=== PATIENT | female | born 1960 | race Caucasian/White ===

== ENCOUNTER 2020-04-15 21:51 | Inpatient (IN) | payer BC ==
[2020-04-15] MEDS ORDERED: Acetaminophen 650 MG Suppository PR PRN (23:09)
[2020-04-15] MEDS ORDERED: Ondansetron PF 4 MG/2 ML Vial IVP PRN (23:09)
[2020-04-15] MEDS ORDERED: Ondansetron ODT 4 MG TAB PO PRN (23:09)
--- NOTE | 2020-04-15 23:22 | PDOC.HHP ---
Hospitalist HPI - History of Present Illness Chills and abdominal cramping History of Present Illness: Patient states she has been feeling unwell for the last 5-6 days with generalized body aches. Two days ago she began to experience lower abdominal cramping. Today she developed "uncontrollable chills" and this prompted her to seek medical attention. She felt it was likely associated with recurrent diverticulitis. She had her first episode in November 2018 and quickly recovered with antibiotics. Has had 3-4 recurring episodes since then. States she has not required treatment and that it quickly resolved on its own. Has not had a formal diagnosis. She states her appetite has been low that last 3 days and therefore her bowel movements have slowed down as well as her urinary output. Normally she has several loose stool s a day. Denies any blood per rectum. Had a small bowel movement this morning. Has vomiting a couple of times but no further vomiting since yesterday. ED Course: Apparently was prescribed Augmentin, however her symptoms worsened. She was seen at [facility] where she had CT imaging of the pelvis demonstrating a pelvic abscess(11.8x5.9x4.9 cm large encapsulated fluid collection surrounding the uterus and sigmoid colon). Started on IV antibiotics with Vanc/Zosyn. Deemed to need surgical evaluation and therefore transferred. Per ED notes, she had labs done showing a lactic acid of 3.4. She received 3 L of NS and lactic acid improved to 2.0. For pain she received morphine. For nausea she received Zofran. EKG NSR HR 86. No ST changes or T wave abnormalities. Hospitalist ROS - Medication Medications: ALLERGIES: No known drug allergies. CURRENT MEDICATIONS: None. 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 Gastrointestinal: reports: Other (Treated for diverticulitis by PCP.) - Past Surgical History Past Surgical History: reports: no pertinent history - Family History Family History: reports: no pertinent history - Social History Smoking Status: Never smoker Alcohol: reports: Heavy Activity level: independent ambulation - Exam General Appearance: NAD, awake alert General - other findings: Appears uncomfortable when she moves but in no acute distress Eye: PERRL, anicteric sclera ENT: normocephalic atraumatic, no oropharyngeal lesions, dry oral mucosa Neck: supple, no lymphadenopathy Heart: RRR, no murmur, no gallops, no rubs, normal peripheral pulses Respiratory: CTAB, no wheezes, no rales, no ronchi, normal chest expansion Gastrointestinal: normal bowel sounds Gastrointestinal - other findings: semi-firm, diffuse discomfort with palpation Extremities: no cyanosis, no clubbing, no edema Skin: normal turgor, no lesions, no rashes Neurological: cranial nerve grossly intact, normal sensation to touch Musculoskeletal: normal tone, normal strength, no muscle wasting Psychiatric: normal affect, normal behavior, A&O x 3 Hospitalist Results - Labs Result Diagrams: 04/16/20 00:00 04/16/20 00:00 Hospitalist H&P A/P - Problem (1) Abdominal pain Code(s): R10.9 - UNSPECIFIED ABDOMINAL PAIN Status: Acute (2) Hypotension Status: Acute (3) Pelvic abscess in female Code(s): N73.9 - FEMALE PELVIC INFLAMMATORY DISEASE, UNSPECIFIED Status: Acute (4) Rigors Code(s): R68.89 - OTHER GENERAL SYMPTOMS AND SIGNS Status: Acute (5) History of diverticulitis Code(s): Z87.19 - PERSONAL HISTORY OF OTHER DISEASES OF THE DIGESTIVE SYSTEM Status: Chronic (6) Heavy alcohol consumption Code(s): Z78.9 - OTHER SPECIFIED HEALTH STATUS Status: Chronic - Plan Plan: General surgery was consulted by ED physician. NPO until surgical review. Obtain baseline labs here. IV fluids. Monitor BP. ASE protocol. UA/UCx, UDS. Bladder scan to ensure no retention (given complaints of decreased urine output) . GI prophylaxis with Famotidine. DVT Prophylaxis with mechanical SCDS. CODE STATUS FULL Surrogate decision maker: Denys Rodríguez, her . Discussed with Dr. Waggoner who agrees with plan as above.
[2020-04-16 00:20] VITALS: BMI 20.7
[2020-04-16 00:25] LABS: Glucose 113 mg/dL (70-105); Lactic Acid 1.4 mmol/L (0.5-2.2)
[2020-04-16 00:29] LABS: ALT (SGPT) 31 U/L (8-55); AST (SGOT) 30 U/L (5-34); Albumin 3.4 g/dL (3.5-5.0); Alkaline Phosphatase 93 U/L (40-110); Anion Gap 13 mmol/L (10-20); BUN (Urea Nitrogen) 9 mg/dL (9.8-20.1); Bilirubin, Total 1.8 mg/dL (0.2-1.2); Calc. Creatinine Clearance 87 mL/min (70-130); Calcium 9.1 mg/dL (7.8-10.44); Carbon Dioxide 26 mmol/L (22-29); Chloride 101 mmol/L (98-107); Estimated GFR-MDRD 85; Globulin 2.9 g/dL (2.4-3.5); Potassium 3.4 mmol/L (3.5-5.1); Protein, Total 6.3 g/dL (6.0-8.3); Sodium 137 mmol/L (136-145)
[2020-04-16] MEDS: Sodium Chloride 0.9% 1,000 ML IV SCH ×4 (00:31→20:24)
[2020-04-16] MEDS: Cefepime 2 GM in Sodium Chloride 0.9% 100 ML IVPB SCH ×3 (00:32→23:20)
[2020-04-16 00:36] LABS: Band 29 % (5-11); Hemoglobin 12.5 g/dL (12.0-16.0); Lymphocytes 10 % (21-51); MDiff Complete? YES; Mean Corpuscular HGB CONC 33.9 g/dL (32.0-36.0); Mean Corpuscular Volume 91.5 fL (78.0-98.0); Mean Platelet Volume 7.5 fL (7.4-10.4); Metamyelocyte 1 % (0-0); Monocytes 8 % (0-10); Myelocyte 2 % (0-0); Neutrophil 50 % (42-75); Platelet Count 173 thou/uL (130-400); RBC Distribution Width 11.9 % (11.5-14.5); Red Blood Cell (RBC) Count 4.03 mill/uL (4.20-5.40); White Blood Cell (WBC) Count 11.2 thou/uL (4.8-10.8)
[2020-04-16] MEDS: metroNIDAZOLE 500 MG in Premix Bag 1 BAG IVPB SCH ×3 (01:04→17:10)
[2020-04-16 01:14] LABS: Bacteria/HPF None Seen HPF (None Seen); Bilirubin Negative (Negative); Blood, Urine Trace (Negative); Clarity Clear (Clear); Glucose, Urine (Dipstick) Normal (Negative); Leukocyte Negative Leu/uL (Negative); Nitrite Negative (Negative); Protein, Urine (Dipstick) 20 mg/dL (Neg-Trace); RBC/HPF 0-3 HPF (0-3); Squamous Epithelial None Seen HPF (0-3); Urobilinogen Normal mg/dL (Less than 2); WBC/HPF 0-3 HPF (0-3)
[2020-04-16 01:18] LABS: Urine Culture Reflex No No
[2020-04-16 01:35] LABS: Cocaine Metabolite Screen Not Detected (NotDetected); Medtox Reader # READER 4; Methamphetamine Not Detected (NotDetected); Phencyclidine (PCP) Not Detected (NotDetected); THC/Cannabinoid Screen Not Detected (NotDetected)
[2020-04-16 01:36] LABS: Amphetamine Not Detected (NotDetected); Barbiturates Screen Not Detected (NotDetected); Benzodiazepine Screen Not Detected (NotDetected); Medtox Control Line Valid? VALID (VALID); Methadone Not Detected (NotDetected); Opiate Screen Detected (NotDetected); Oxycodone Screen Not Detected (NotDetected); Tricyclic Screen Not Detected (NotDetected)
[2020-04-16] MEDS ORDERED: Potassium Chloride 20 MEQ TAB PO SCH (02:15)
[2020-04-16] MEDS ORDERED: Potassium Chloride 20 MEQ in Premix Bag 1 BAG IVPB SCH (03:00)
[2020-04-16] MEDS: Morphine 2 MG/ML SYRINGE SLOW IVP PRN ×2 (03:10→08:32)
[2020-04-16 06:42] LABS: Band 45 % (5-11); Hemoglobin 12.5 g/dL (12.0-16.0); Lymphocytes 9 % (21-51); MDiff Complete? YES; Mean Corpuscular Volume 91.3 fL (78.0-98.0); Mean Platelet Volume 7.7 fL (7.4-10.4); Metamyelocyte 2 % (0-0); Monocytes 6 % (0-10); Neutrophil 37 % (42-75); Platelet Count 174 thou/uL (130-400); RBC Distribution Width 11.9 % (11.5-14.5); Red Blood Cell (RBC) Count 4.02 mill/uL (4.20-5.40); White Blood Cell (WBC) Count 13.1 thou/uL (4.8-10.8)
[2020-04-16 06:44] LABS: Anion Gap 13 mmol/L (10-20); BUN (Urea Nitrogen) 9 mg/dL (9.8-20.1); Calc. Creatinine Clearance 89 mL/min (70-130); Carbon Dioxide 28 mmol/L (22-29); Chloride 102 mmol/L (98-107); Estimated GFR-MDRD 87; Glucose 96 mg/dL (70-105); Potassium 3.7 mmol/L (3.5-5.1); Sodium 139 mmol/L (136-145)
[2020-04-16] MEDS: Famotidine/PF 20 mg/2ml Vial SLOW IVP SCH ×2 (08:32→20:26)
[2020-04-16 09:12] LABS: INR-International Normal Ratio 1.4; PTT 45.2 sec (22.9-36.1); Prothrombin Time 17.1 sec (12.0-14.7)
--- NOTE | 2020-04-16 10:47 | CON ---
DATE OF CONSULTATION: 04/16/2020 CHIEF COMPLAINT: Abdominal abscesses. HISTORY OF PRESENT ILLNESS: This is a 60-year-old female, who presents with increasing abdominal pain over the last few days. This was described that down in her lower abdomen, sharp, radiates to the upper abdomen, associated with fever and chills. She notes previous history of diverticulitis, but never hospitalized, always treated with outpatient antibiotics. She had been recommended to have a colonoscopy in the past, but she never went through with that. There is no family history of GI malignancy. Her pain is improved now after admission. She was very tachycardic and febrile on presentation to [facility], but resolved with IV antibiotics and some fluids. PAST MEDICAL HISTORY: Denies. PAST SURGICAL HISTORY: Denies. MEDICINES: None. ALLERGIES: NO KNOWN DRUG ALLERGIES. SOCIAL HISTORY: Daily alcohol, multiple drinks. No smoking. No other drugs. REVIEW OF SYSTEMS: Ten-system review of systems is otherwise negative unless described above. PHYSICAL EXAMINATION: VITAL SIGNS: Blood pressure is 103/62, pulse 91, respirations 14, temperature 99.0. HEENT: Sclerae anicteric. Oropharynx clear. NECK: No lymphadenopathy. CHEST: Clear. HEART: Increased rate, regular rhythm without murmur. ABDOMEN: Soft, diffuse, mildly tender, and more tender in the lower abdomen. EXTREMITIES: No ischemia or edema to extremities. LABORATORY DATA: White blood cell count is 13, hemoglobin is 12, platelet count is 174, she has 45 bands. Sodium 139, potassium 3.7, creatinine is 0.69. IMAGING DATA: CT scan shows large pelvic abscess, small amount of free fluid around the liver. No free air. ASSESSMENT: Large abdominal fluid collection consistent with abscess. PLAN: Discussed with Dr. Hernandez and Dr. Reich, they plan percutaneous drainage today. We will convert to an outpatient as she clinically improves. Re-scan in the future. She will need colonoscopy in the future. No plans for operative intervention at this time unless the drainage fails. Job ID: [id number]
[2020-04-16] MEDS ORDERED: Fentanyl 100 MCG/2 ML VIAL ONE (12:52)
[2020-04-16] MEDS ORDERED: Sodium Bicarbonate 2.5 MEQ/5 ML VIAL ONE (12:52)
[2020-04-16] MEDS ORDERED: Midazolam HCl 2 mg/2 ml Vial ONE (12:53)
--- NOTE | 2020-04-16 14:50 | CT ---
CT-guided drainage of pelvic abscess HISTORY: Pelvic abscess. FINDINGS: After explaining the procedure and answering all questions, limited CT imaging of the pelvi s was performed. Sterile technique, buffered local anesthesia, CT guidance, and an anterior approach were used to care fully advance a 19-gauge trocar needle into the anterior lobe of the lobular fluid collection in the pelvis, just above the urinary bladder. Position was confirmed with CT. A 0.35 Amplatz wire was used to hold position, and the tract was carefully dilated to 8 Wallisian. An 8 Wallisian locking loop catheter was then placed so that the most distal portion of the catheter was in the posterior dependent portion of the fluid collection, with sideholes extending throughout the cavi ty. Approximately 20 cc of cloudy yellow liquid was aspirated. Additional fluid would not aspirate at the time, although with non-vacuum drainage to the bag after the procedure, the fluid began to drain more quickly. Catheter was secured externally with 0 silk suture and buffered local anesthesia. Catheter was left d raining to gravity. Patient tolerated the procedure well and was returned in unchanged condition. IMPRESSION : Technically successful CT-guided pelvic abscess drainage.
[2020-04-16] MEDS ORDERED: Fentanyl 100 MCG/2 ML VIAL SLOW IVP PRN (14:56)
[2020-04-16] MEDS ORDERED: Loperamide HCl 2 MG CAP PO PRN (14:57)
[2020-04-16] MEDS ORDERED: Saccharomyces boulardii 250 MG CAP PO SCH (15:00)
[2020-04-16] MEDS: traMADol HCl 50 MG TAB PO PRN ×2 (15:46→20:26)
--- NOTE | 2020-04-16 17:50 | PDOC.HOSPP ---
- Subjective Encounter Date: 04/16/20 Encounter Time: 17:50 Subjective: Patient seen and examined for Pelvic abscess. Abd pain same. No N/V. No other complaints. No overnight events - Objective Vital Signs & Weight: Vital Signs (12 hours) Temp Pulse Resp BP BP Pulse Ox 04/16/20 17:23 112/83 04/16/20 17:22 98.5 F 90 16 112/63 92 L 04/16/20 13:00 113/64 04/16/20 12:50 99.3 F 99 16 113/64 95 04/16/20 08:30 107/66 107/66 04/16/20 07:14 99.0 F 91 14 103/62 97 Weight Weight 140 lb I&O: 04/15/20 04/16/20 04/17/20 06:59 06:59 06:59 Intake Total 700 1720 Output Total 850 Balance 700 870 Result Diagrams: 04/16/20 05:54 04/16/20 05:54 Radiology Reviewed by me: Yes (CT abd reviewed) Hospitalist ROS - Review of Systems Cardiovascular: denies: chest pain, palpitations, orthopnea, paroxysmal noc. dyspnea, edema, light headedness, other Gastrointestinal: denies: nausea, vomiting, abdominal pain, diarrhea, constipation, melena, hematochezia, other - Medication Medications: Active Medications Generic Name Dose Route Start Last Admin Trade Name Freq PRN Reason Stop Dose Admin Famotidine 20 mg 04/16/20 09:00 04/16/20 08:32 Pepcid SLOW IVP 20 mg Q12HR ELOISE Administration Sodium Chloride 1,000 mls @ 100 mls/hr 04/15/20 23:30 04/16/20 17:10 Normal Saline 0.9% IV 1,000 mls .Q10H ELOISE Administration Cefepime HCl 2 gm/ Sodium 100 mls @ 200 mls/hr 04/15/20 23:59 04/16/20 11:22 Chloride IVPB 100 mls 1200,2359 ELOISE Administration Metronidazole 500 mg/ Device 100 mls @ 100 mls/hr 04/16/20 02:00 04/16/20 17: 10 IVPB 100 mls 0200,1000,1800 ELOISE Administration Morphine Sulfate 2 mg 04/16/20 02:04 04/16/20 08:32 Morphine SLOW IVP 2 mg Q4H PRN Administration Severe Pain (7-10) Tramadol HCl 50 mg 04/16/20 14:56 04/16/20 15:46 Ultram PO 50 mg Q4H PRN Administration Moderate Pain (4-6) - Exam General Appearance: NAD Neck: supple, no JVD Heart: RRR, no gallops, no rubs, normal peripheral pulses Respiratory: no wheezes, no rales, no ronchi, normal chest expansion Gastrointestinal: soft, normal bowel sounds, no guarding, no rigidity Gastrointestinal - other findings: mild gen tenderness Extremities: no cyanosis, no edema Skin: normal turgor Neurological: no new deficit Psychiatric: normal affect, A&O x 3 Hosp A/P - Plan DVT proph w/SCDs Severe Sepsis due to Pelvic abscess s/p CT drainage Hypotension Chronic alcohol abuse Hypokalemia Diverticulosis PLAN: Cont IV Cefepime with Flagyl Pain control Add Probiotics Await cultures Surg input appreciated Ambulate AM labs Add thiamine, MVM and folic acid Monitor for alcohol withdrawal
[2020-04-16] MEDS ORDERED: Lorazepam 1 MG TAB PO PRN (17:56)
[2020-04-16] MEDS: Acetaminophen 325 MG TAB PO PRN (20:26)
[2020-04-17] MEDS: metroNIDAZOLE 500 MG in Premix Bag 1 BAG IVPB SCH ×3 (01:15→18:26)
[2020-04-17] MEDS: Sodium Chloride 0.9% 1,000 ML IV SCH ×3 (01:27→11:54)
[2020-04-17 06:20] LABS: #Lymphocytes 0.9 thou/uL (1.20-3.40); #Monocytes 0.6 thou/uL (0.11-0.59); #Neutrophils 9.8 thou/uL (1.40-6.50); %Basophils 0.1 % (0.0-1.0); %Eosinophils 0.2 % (0.0-10.0); %Lymphocytes 7.6 % (21.0-51.0); %Monocytes 5.2 % (0.0-10.0); %Neutrophils 86.9 % (42.0-75.0); Mean Corpuscular HGB CONC 33.3 g/dL (32.0-36.0); Mean Corpuscular Hemoglobin 30.7 pg (27.0-31.0); Mean Platelet Volume 7.4 fL (7.4-10.4); Platelet Count 156 thou/uL (130-400); RBC Distribution Width 12.1 % (11.5-14.5); Red Blood Cell (RBC) Count 3.59 mill/uL (4.20-5.40); White Blood Cell (WBC) Count 11.2 thou/uL (4.8-10.8)
[2020-04-17 06:41] LABS: ALT (SGPT) 17 U/L (8-55); AST (SGOT) 15 U/L (5-34); Albumin 2.8 g/dL (3.5-5.0); Alkaline Phosphatase 77 U/L (40-110); Anion Gap 10 mmol/L (10-20); BUN (Urea Nitrogen) 12 mg/dL (9.8-20.1); Bilirubin, Total 0.7 mg/dL (0.2-1.2); Calc. Creatinine Clearance 98 mL/min (70-130); Calcium 8.7 mg/dL (7.8-10.44); Carbon Dioxide 26 mmol/L (22-29); Chloride 103 mmol/L (98-107); Estimated GFR-MDRD Greater than 90; Globulin 2.7 g/dL (2.4-3.5); Glucose 99 mg/dL (70-105); Magnesium 1.8 mg/dL (1.6-2.6); Potassium 3.2 mmol/L (3.5-5.1); Protein, Total 5.5 g/dL (6.0-8.3); Sodium 136 mmol/L (136-145)
[2020-04-17] MEDS: Famotidine/PF 20 mg/2ml Vial SLOW IVP SCH ×2 (08:21→20:42)
[2020-04-17] MEDS: Saccharomyces boulardii 250 MG CAP PO SCH (08:21)
[2020-04-17] MEDS: Multivit, Therapeutic 1 TAB PO SCH (08:22)
[2020-04-17] MEDS: Thiamine 100 MG TAB PO SCH (08:22)
[2020-04-17] MEDS: Folic Acid 1 MG TAB PO SCH (08:22)
[2020-04-17] MEDS: traMADol HCl 50 MG TAB PO PRN ×3 (08:31→20:45)
--- NOTE | 2020-04-17 12:12 | PDOC.HOSPP ---
- Subjective Encounter Date: 04/17/20 Encounter Time: 10:30 Subjective: Patient seen and examined for Pelvic abscess. Abd pain improving. No new complaints. No overnight events - Objective Vital Signs & Weight: Vital Signs (12 hours) Temp Pulse Resp BP BP Pulse Ox 04/17/20 11:23 98.8 F 83 16 127/82 04/17/20 08:00 122/78 04/17/20 07:43 98.9 F 76 16 122/78 95 04/17/20 04:00 97.9 F 78 18 105/62 105/62 93 L Weight Weight 140 lb I&O: 04/16/20 04/17/20 04/18/20 06:59 06:59 06:59 Intake Total 700 1720 Output Total 1000 40 Balance 700 720 -40 Result Diagrams: 04/17/20 06:03 04/17/20 06:03 Hospitalist ROS - Review of Systems Respiratory: denies: cough, dry, shortness of breath, hemoptysis, SOB with excertion, pleuritic pain, sputum, wheezing, other Cardiovascular: denies: chest pain, palpitations, orthopnea, paroxysmal noc. dyspnea, edema, light headedness, other - Medication Medications: Active Medications Generic Name Dose Route Start Last Admin Trade Name Freq PRN Reason Stop Dose Admin Acetaminophen 650 mg 04/15/20 23:09 04/16/20 20:26 Tylenol PO 650 mg Q4H PRN Administration Headache/Fever/Mild Pain (1-3) Famotidine 20 mg 04/16/20 09:00 04/17/20 08:21 Pepcid SLOW IVP 20 mg Q12HR ELOISE Administration Folic Acid 1 mg 04/17/20 09:00 04/17/20 08:22 Folvite PO 1 mg DAILY ELOISE Administration Cefepime HCl 2 gm/ Sodium 100 mls @ 200 mls/hr 04/15/20 23:59 04/16/20 23:20 Chloride IVPB 100 mls 1200,2359 ELOISE Administration Metronidazole 500 mg/ Device 100 mls @ 100 mls/hr 04/16/20 02:00 04/17/20 10: 32 IVPB 100 mls 0200,1000,1800 ELOISE Administration Loperamide HCl 2 mg 04/16/20 14:57 04/17/20 08:31 Imodium PO 2 mg PRN PRN Administration Diarrhea/Loose Stools Morphine Sulfate 2 mg 04/16/20 02:04 04/16/20 08:32 Morphine SLOW IVP 2 mg Q4H PRN Administration Severe Pain (7-10) Multivitamins 1 tab 04/17/20 09:00 04/17/20 08:22 Theragran PO 1 tab DAILY ELOISE Administration Saccharomyces Boulardii 250 mg 04/17/20 09:00 04/17/20 08:21 Florastor PO 250 mg DAILY ELOISE Administration Thiamine HCl 100 mg 04/17/20 09:00 04/17/20 08:22 Thiamine PO 100 mg DAILY ELOISE Administration Tramadol HCl 50 mg 04/16/20 14:56 04/16/20 20:26 Ultram PO 50 mg Q4H PRN Administration Moderate Pain (4-6) - Exam General Appearance: NAD Neck: supple, no JVD Heart: RRR, no gallops Respiratory: no wheezes, no ronchi Gastrointestinal: non-tender, non-distended, normal bowel sounds Extremities: no cyanosis, no clubbing Neurological: no new deficit Hosp A/P - Plan DVT proph w/SCDs Severe Sepsis due to Pelvic abscess s/p CT drainage 04/16 Hypotension - improving Chronic alcohol abuse Hypokalemia Hypomagnesemia Diverticulosis PLAN: Replace Potassium and Magnesium Cont IV Cefepime with Flagyl Pain control Await cultures Surg input appreciated Cont thiamine, MVM and folic acid Cont alcohol withdrawal protocol AM labs
[2020-04-17] MEDS ORDERED: Potassium Chloride 20 MEQ/100 ML PREMIX BAG IVPB SCH (12:15)
[2020-04-17] MEDS ORDERED: SODIUM CHLORIDE 0.9% IVPB SCH (12:15)
[2020-04-17] MEDS ORDERED: POTASSIUM CHLORIDE IVPB SCH (12:15)
[2020-04-17] MEDS ORDERED: MAGNESIUM SULFATE IVPB SCH (12:15)
[2020-04-17] MEDS: Cefepime 2 GM in Sodium Chloride 0.9% 100 ML IVPB SCH ×2 (13:26→23:17)
--- NOTE | 2020-04-17 13:33 | PRG ---
DATE OF SERVICE: 04/17/2020 SUBJECTIVE: Ms. Rodríguez had percutaneous drainage yesterday. She feels better today. She has some bloating, mild nausea. OBJECTIVE: VITAL SIGNS: She is afebrile. Vital signs are stable. ABDOMEN: Soft, minimally distended, minimally diffusely tender. No guarding or rebound. LABORATORY DATA: White blood cell count is decreased. Bandemia has resolved. ASSESSMENT: Postoperative percutaneous drainage of diverticular abscess. PLAN: Continue IV antibiotics. Advance to a regular diet. She could be ready to go home as soon as tomorrow on oral antibiotics, and I will arrange for outpatient CT scan and drain removal. Job ID: [id number]
--- NOTE | 2020-04-17 14:51 | CT ---
CT-guided drainage of pelvic abscess HISTORY: Pelvic abscess. FINDINGS: After explaining the procedure and answering all questions, limited CT imaging of the pelvi s was performed. Sterile technique, buffered local anesthesia, CT guidance, and an anterior approach were used to care fully advance a 19-gauge trocar needle into the anterior lobe of the lobular fluid collection in the pelvis, just above the urinary bladder. Position was confirmed with CT. A 0.35 Amplatz wire was used to hold position, and the tract was carefully dilated to 8 Tristanian. An 8 Tristanian locking loop catheter was then placed so that the most distal portion of the catheter was in the posterior dependent portion of the fluid collection, with sideholes extending throughout the cavi ty. Approximately 20 cc of cloudy yellow liquid was aspirated. Additional fluid would not aspirate at the time, although with non-vacuum drainage to the bag after the procedure, the fluid began to drain more quickly. Catheter was secured externally with 0 silk suture and buffered local anesthesia. Catheter was left d raining to gravity. Patient tolerated the procedure well and was returned in unchanged condition. IMPRESSION : Technically successful CT-guided pelvic abscess drainage. Transcribed Date/Time: 04/17/2020 2:50 PM
[2020-04-17] MEDS: Acetaminophen 325 MG TAB PO PRN (20:45)
[2020-04-18] MEDS: metroNIDAZOLE 500 MG in Premix Bag 1 BAG IVPB SCH ×2 (01:26→11:15)
[2020-04-18 06:14] LABS: #Eosinphils 0.1 thou/uL (0.0-0.7); #Lymphocytes 1.5 thou/uL (1.20-3.40); #Monocytes 0.7 thou/uL (0.11-0.59); #Neutrophils 10.7 thou/uL (1.40-6.50); %Basophils 0.1 % (0.0-1.0); %Eosinophils 0.5 % (0.0-10.0); %Lymphocytes 11.3 % (21.0-51.0); %Monocytes 5.1 % (0.0-10.0); Hemoglobin 12.4 g/dL (12.0-16.0); Mean Corpuscular HGB CONC 32.5 g/dL (32.0-36.0); Mean Corpuscular Hemoglobin 29.4 pg (27.0-31.0); Mean Corpuscular Volume 90.3 fL (78.0-98.0); Mean Platelet Volume 7.1 fL (7.4-10.4); Platelet Count 215 thou/uL (130-400); RBC Distribution Width 12.2 % (11.5-14.5); Red Blood Cell (RBC) Count 4.24 mill/uL (4.20-5.40); White Blood Cell (WBC) Count 12.9 thou/uL (4.8-10.8)
[2020-04-18 06:33] LABS: Anion Gap 12 mmol/L (10-20); BUN (Urea Nitrogen) 14 mg/dL (9.8-20.1); Calc. Creatinine Clearance 93 mL/min (70-130); Calcium 8.2 mg/dL (7.8-10.44); Carbon Dioxide 25 mmol/L (22-29); Chloride 103 mmol/L (98-107); Estimated GFR-MDRD Greater than 90; Glucose 108 mg/dL (70-105); Sodium 137 mmol/L (136-145)
[2020-04-18 06:37] LABS: Potassium 2.8 mmol/L (3.5-5.1)
[2020-04-18] MEDS ORDERED: Potassium Chloride 20 MEQ in Premix Bag 1 BAG IVPB SCH (07:00)
[2020-04-18] MEDS ORDERED: Potassium Chloride 20 MEQ TAB PO SCH ×2 (07:00→12:00)
[2020-04-18 07:20] VITALS: BP 124/75; TEMP 97.8
[2020-04-18] MEDS: Famotidine/PF 20 mg/2ml Vial SLOW IVP SCH (08:54)
[2020-04-18] MEDS: Saccharomyces boulardii 250 MG CAP PO SCH (08:56)
[2020-04-18] MEDS: Thiamine 100 MG TAB PO SCH (08:57)
[2020-04-18] MEDS: Multivit, Therapeutic 1 TAB PO SCH (08:57)
[2020-04-18] MEDS: Folic Acid 1 MG TAB PO SCH (08:57)
--- NOTE | 2020-04-18 11:47 | PRG ---
DATE OF SERVICE: 04/18/2020 SUBJECTIVE: Ms. Rodríguez has no complaints today, tolerated regular diet. She has occasional nausea. OBJECTIVE: Her abdomen is soft and appropriately tender. Drain output is less. ASSESSMENT: Diverticulitis with localized rupture and abscess, status post percutaneous drain. PLAN: Discharge home today. Prescriptions for Levaquin, Flagyl, ondansetron, tramadol sent to [facility]. My office will set her up for outpatient CT and drain removal in a week or 2. Job ID: [id number]
[2020-04-18] MEDS: traMADol HCl 50 MG TAB PO PRN (12:18)
[2020-04-18] MEDS ORDERED: metroNIDAZOLE 500 MG TAB PO SCH (15:00)
--- NOTE | 2020-04-19 02:26 | DIS ---
DATE OF ADMISSION: 04/15/2020 DATE OF DISCHARGE: 04/18/2020 PRIMARY CARE PROVIDER: Unknown. DISCHARGE DIAGNOSES: 1. Diverticulitis. 2. Localized rupture and abscess secondary to diverticulitis. 3. Status post percutaneous drain. 4. Hypokalemia. CONDITION OF PATIENT ON THE DAY OF DISCHARGE: Stable. I assessed Ms. Rodríguez on the day of discharge. She denies any chest pain or shortness of breath. Vital signs are stable. S1 and S2 are heard, regular. Lungs are clear to auscultation bilaterally. CONSULTATIONS DURING THIS HOSPITALIZATION: General Surgery, Dr. Solis. POST-ACUTE CARE FOLLOWUP: With primary care provider in [address] Solis in 10 days. DIET: Regular. ACTIVITY: No restrictions. DISCHARGE MEDICATIONS: The patient was prescribed by General Surgery Service; 1. Tramadol. 2. Levofloxacin. 3. Metronidazole. HOSPITAL COURSE: Ms. Rodríguez is a pleasant 60-year-old lady, who was admitted to [facility] on April 15, 2020 for abscess secondary to diverticular rupture. She was seen by General Surgery Service. She received intravenous antibiotics. She underwent CT-guided drainage of the abscess. She continued to improve clinically and is being discharged home in a stable condition. DISCHARGE DESTINATION: Home. TIME SPENT: Total amount of time spent coordinating this discharge: 33 minutes. Job ID: [id number]
== END 2020-04-18 14:35 | disposition home or self-care (01) | DRG 872 ==
LOC: ERS 21:51 → T4-B 23:02
PROVIDERS: ADMIT Internal Medicine; ATTEND Internal Medicine
PROC: 0W9J30Z Drainage of Pelvic Cavity with Drainage Device, Percutaneous Approach (ICD-10-PCS; principal; 2020-04-16)
PROC: HZ2ZZZZ Detoxification Services for Substance Abuse Treatment (ICD-10-PCS; 2020-04-17)
DX: A41.9 Sepsis, unspecified organism (principal); K57.80 Diverticulitis of intestine, part unspecified, with perforation and abscess without bleeding; R65.20 Severe sepsis without septic shock; F10.10 Alcohol abuse, uncomplicated; E87.6 Hypokalemia; E83.42 Hypomagnesemia; Z87.19 Personal history of other diseases of the digestive system
CPT/HCPCS: 36415; 49020; 77002; 80048; 80053; 80306; 81001; 83605; 83735; 85025; 85610; 85730; 87070; 87077; 87205; 93005; C1729; J0692; J2250; J2270; J3010; J3475; J3480; J3490; J7050; Q0162; S0028

== ENCOUNTER 2020-04-25 08:54 | Outpatient (CLI) | payer BC ==
--- NOTE | 2020-04-25 11:31 | CT ---
CT Abdomen Pelvis W Con: 04/25/2020 12:00 AM CLINICAL INFORMATION: History of diverticulitis with peritoneal abscess drainage recently COMPARISON: CT abdomen/pelvis 04/16/2020 and is 04/15/2020 TECHNIQUE: Multiple contiguous axial images were obtained and a CT of the abdomen and pelvis with IV contrast. Oral contrast was administered. Coronal and sagittal reformats were performed. FINDINGS: Lower Chest: within normal limits. Abdomen: Liver: within normal limits. Bile Ducts: Normal caliber. Gallbladder: No calcified gallstones. Normal caliber wall. Pancreas: within normal limits. Spleen: within normal limits. Adrenals: within normal limits. Kidneys: within normal limits. Pelvis: Reproductive Organs: The uterus is present it is small and atrophic. It is difficult to visualize giv en the inflammatory changes in the pelvis. Ureters: within normal limits. Bladder: within normal limits. Peritoneum: A pigtail catheter is seen in the right lower quadrant of the abdomen. The previously see n fluid collection has significantly decreased in size. However a multiloculated fluid collection still remains in the pelvis with the largest area of the collection measuring 3.0 cm in width. Bowel: There is thickening of the wall the sigmoid colon. Scattered diverticula are seen in the sigmo id colon. Mesentery and Retroperitoneum: No enlarged mesenteric or retroperitoneal lymph nodes. Vessels: Normal. Abdominal Wall: within normal limits. Bones: Degenerative changes in the spine. IMPRESSION: Decreased size of multiloculated pelvic fluid collection with persistent small multiloculated pelvic fluid collection
[2020-04-25] MEDS ORDERED: Iopamidol-370 76% 500 ML 1 ML ONE (12:55)
== END 2020-04-25 08:55 | disposition home or self-care (01) ==
LOC: BICCT 08:54
PROVIDERS: ATTEND Surgery
DX: K57.92 Diverticulitis of intestine, part unspecified, without perforation or abscess without bleeding (principal)
CPT/HCPCS: 74177; Q9967